=== PATIENT | female | born 1940 | race Caucasian/White ===

== ENCOUNTER → 2019-10-20 | Emergency (ER) | payer MEDICARE ==
[~2019-10-20] MED LIST: ACETAMINOPHEN TAB 650MG DOSE (2X325MG) ONE; traMADol 50 MG TAB ONE
== END | disposition home or self-care (01) ==
LOC: M ED 15:35
DX: M54.41 Lumbago with sciatica, right side (principal); M51.37 Other intervertebral disc degeneration, lumbosacral region; Z79.899 Other long term (current) drug therapy